=== PATIENT | male | born 1965 | race Caucasian/White ===

== ENCOUNTER 2023-11-01 10:13 | Inpatient (IN) | payer OTHER ==
[2023-11-01 10:56] VITALS: BMI 21.8
[2023-11-01] MEDS ORDERED: NALOXONE HCL (KLOXXADO) 8 MG SPRAY NS PRN (12:38)
[2023-11-01] MEDS ORDERED: guaiFENesin 600 MG TABLET.ER (FP) PO PRN (12:38)
[2023-11-01] MEDS ORDERED: POLYETHYLENE GLYCOL (HEALTHYLAX) 3350 17 GM PACKET PO PRN (12:38)
[2023-11-01] MEDS ORDERED: MAG HYDROX/AL HYDROX/SIMETH 30 ML UNIT-DOSE CUP PO PRN (12:38)
[2023-11-01] MEDS ORDERED: BENZOCAINE/MENTHOL (CHLORASEPTIC ) LOZENGE MM PRN (12:38)
[2023-11-01] MEDS ORDERED: IBUPROFEN 400 MG TABLET (FP) PO PRN (12:38)
[2023-11-01] MEDS ORDERED: NALOXONE HCL 0.4 MG/ML VIAL IM PRN (12:38)
[2023-11-01] MEDS ORDERED: BISMUTH SUBSALICYLATE 262 MG/15 ML BTL PO PRN (12:38)
[2023-11-01] MEDS ORDERED: IBUPROFEN 600 MG TABLET (FP) PO PRN (12:38)
[2023-11-01] MEDS ORDERED: MAGNESIUM HYDROX 2400MG/30ML ORAL SUSPENSION 30 ML CUP PO PRN (12:38)
[2023-11-01] MEDS ORDERED: BENZONATATE 200 MG CAPSULE PO PRN (12:38)
[2023-11-01] MEDS ORDERED: LOPERAMIDE HCL 2 MG CAPSULE PO PRN (12:38)
[2023-11-01] MEDS ORDERED: ACETAMINOPHEN 325 MG TABLET (FP) PO PRN (12:38)
[2023-11-01] MEDS ORDERED: hydrOXYzine PAMOATE 25 MG CAPSULE (FP) PO PRN (12:38)
[2023-11-01] MEDS ORDERED: ONDANSETRON *ODT* 4 MG TABLET ONE (13:30)
[2023-11-01] MEDS: ONDANSETRON *ODT* 4 MG TABLET SL PRN ×2 (13:32→21:00)
[2023-11-01] MEDS ORDERED: cloNIDine HCL 0.1 MG TABLET PO PRN (17:34)
[2023-11-01] MEDS ORDERED: TRIMETHOBENZAMIDE HCL 200MG/2ML INJ IM ONE (17:53)
[2023-11-01 20:57] VITALS: BP 149/68; PULSE 58; RESP 16; TEMP 98.7
[2023-11-01] MEDS ORDERED: THIAMINE HCL 100 MG TABLET (FP) PO SCH (22:00)
[2023-11-01] MEDS ORDERED: diazePAM 5 MG TABLET PO PRN (22:00)
[2023-11-01] MEDS ORDERED: MELATONIN 5 MG TABLETS PO SCH (22:00)
[2023-11-02] MEDS ORDERED: methaDONE HCL 10 MG TABLET (FOR DETOX USE ONLY) PO ONE (10:00)
[2023-11-02] MEDS ORDERED: PRENATAL VITAMINS W/ FOLIC ACID TABLET (FP) PO SCH (10:00)
== END 2023-11-02 07:09 | disposition short-term general hospital (02) | DRG 773 ==
LOC: YASAS 10:13 → Y6N 13:01
PROVIDERS: ADMIT Allergy & Immunology; ATTEND Surgery
PROC: HZ2ZZZZ Detoxification Services for Substance Abuse Treatment (ICD-10-PCS; principal; 2023-11-01)
DX: F11.23 Opioid dependence with withdrawal (principal); F13.20 Sedative, hypnotic or anxiolytic dependence, uncomplicated; F17.210 Nicotine dependence, cigarettes, uncomplicated; F43.10 Post-traumatic stress disorder, unspecified; F41.9 Anxiety disorder, unspecified; F32.A Depression, unspecified; R11.2 Nausea with vomiting, unspecified
CPT/HCPCS: 87635; 93005; 93010; Q0162

== ENCOUNTER 2023-11-01 23:24 | Observation (INO) | payer OTHER ==
[2023-11-01] MEDS ORDERED: METOCLOPRAMIDE HCL INJECTION 10 MG/2 ML VIAL IVPUSH ONE (23:46)
[2023-11-01] MEDS ORDERED: PROCHLORPERAZINE INJECTION 10 MG/2 ML VIAL IVPB ONE (23:46)
[2023-11-01 23:55] VITALS: BMI 20.5
[2023-11-02] MEDS ORDERED: METOCLOPRAMIDE HCL INJECTION 10 MG/2 ML VIAL ONE
[2023-11-02] MEDS ORDERED: PROCHLORPERAZINE INJECTION 10 MG/2 ML VIAL ONE
[2023-11-02] MEDS ORDERED: LORazepam 2 MG/ML SDV VIAL IVPUSH ONE (00:07)
[2023-11-02 00:34] LABS: BASO % 0.1 % (0-2.0); EOS % 0.1 % (0-4.5); HEMATOCRIT 38.4 % (35.4-49); HEMOGLOBIN 12.9 GM/dL (11.7-16.9); LYMPH % 11.5 % (8-40); MCH 30.3 pg (25.7-33.7); MCHC 33.6 g/dl (32.0-35.9); MEAN CELL VOLUME 90.2 fl (80-96); MONO % 3.2 % (3.8-10.2); NEUT % 85.1 % (42.8-82.8); PLATELET COUNT 280 10^3/uL (134-434); RBC 4.26 M/mm3 (4.00-5.60); RDW 13.8 % (11.9-15.9)
[2023-11-02 00:46] LABS: INR 0.95 (0.83-1.09)
[2023-11-02 00:54] LABS: ALBUMIN 3.5 g/dl (3.4-5.0); BLOOD UREA NITROGEN 23.1 mg/dL (7-18); CALCIUM 8.8 mg/dL (8.5-10.1); MAGNESIUM 1.9 mg/dL (1.8-2.4)
[2023-11-02 00:57] LABS: PHOSPHOROUS 1.6 mg/dL (2.5-4.9)
[2023-11-02 00:59] LABS: BILIRUBIN,TOTAL 0.6 mg/dL (0.2-1); TOT PROT 6.6 g/dl (6.4-8.2)
[2023-11-02] MEDS ORDERED: LACTATED RINGERS SOLUTION 1000 ML INFUS.BAG IV ONE (01:00)
[2023-11-02] MEDS ORDERED: ACETAMINOPHEN 1000 MG/100 ML BAG IVPB ONE (01:05)
[2023-11-02] MEDS ORDERED: POTASSIUM PHOSPHATE 30 MM in DEXTROSE 5%-WATER - 500 ML IVPB ONE (01:09)
[2023-11-02] MEDS ORDERED: ACETAMINOPHEN INJECTION 100 ML IVPB ONE (01:09)
[2023-11-02] MEDS ORDERED: ALPRAZolam 1 MG TABLET PO PRN (02:39)
[2023-11-02] MEDS ORDERED: clonazePAM 2 MG TABLET PO PRN (02:39)
[2023-11-02] MEDS ORDERED: LACTATED RINGERS SOLUTION 1,000 ML/1,000 ML INFUS.BAG IV SCH (02:45)
[2023-11-02 02:51] LABS: POTASSIUM 3.7 mmol/L (3.5-5.1)
[2023-11-02 02:52] LABS: CALCIUM 8.5 mg/dL (8.5-10.1)
[2023-11-02 02:53] LABS: BLOOD UREA NITROGEN 20.7 mg/dL (7-18); MAGNESIUM 1.5 mg/dL (1.8-2.4)
[2023-11-02 02:56] LABS: CREATININE 0.9 mg/dL (0.55-1.3); PHOSPHOROUS 2.1 mg/dL (2.5-4.9)
[2023-11-02] MEDS ORDERED: MAGNESIUM 2GM/50ML STERILE WATER IVPB IVPB ONE (03:03)
[2023-11-02] MEDS ORDERED: MAGNESIUM SULFATE IN WATER 2 GM/50 ML IVPB IVPB ONE (05:25)
[2023-11-02 05:59] LABS: PH,URINE >= 9.0 (5.0-8.0); URINE APPEARANCE CLEAR; URINE BILIRUBIN NEGATIVE (NEGATIVE); URINE COLOR YELLOW; URINE GLUCOSE (UA) NEGATIVE (NEGATIVE); URINE KETONE TRACE (NEGATIVE); URINE LEUK ESTERASE NEGATIVE (NEGATIVE); URINE NITRITE NEGATIVE (NEGATIVE); URINE PROTEIN NEGATIVE (NEGATIVE); URINE UROBILINOGEN 0.2 mg/dL (0.2-1.0)
[2023-11-02] MEDS ORDERED: ONDANSETRON 4 MG/2 ML VIAL ONE ×2 (06:52→11:44)
[2023-11-02] MEDS: ONDANSETRON 4 MG/2 ML VIAL IVPUSH PRN ×2 (06:56→11:53)
[2023-11-02 07:02] LABS: POTASSIUM 3.5 mmol/L (3.5-5.1)
[2023-11-02 07:08] LABS: ALBUMIN 3.4 g/dl (3.4-5.0); BLOOD UREA NITROGEN 18.2 mg/dL (7-18); CALCIUM 8.6 mg/dL (8.5-10.1); MAGNESIUM 1.8 mg/dL (1.8-2.4)
[2023-11-02 07:11] LABS: PHOSPHOROUS 3.4 mg/dL (2.5-4.9)
[2023-11-02 07:13] LABS: BILIRUBIN,TOTAL 0.5 mg/dL (0.2-1); TOT PROT 6.3 g/dl (6.4-8.2)
[2023-11-02 07:42] VITALS: TEMP 99.5
[2023-11-02] MEDS ORDERED: buPROPion HCL 75 MG TABLET PO SCH (08:00)
[2023-11-02] MEDS ORDERED: methaDONE HCL 10 MG TABLET ONE (08:48)
[2023-11-02] MEDS ORDERED: ALPRAZolam 1 MG TABLET ONE ×2 (10:00→10:05)
[2023-11-02] MEDS ORDERED: methaDONE HCL 10 MG TABLET PO ONE (10:00)
[2023-11-02] MEDS ORDERED: QUEtiapine FUMARATE 200 MG TABLET PO SCH (10:00)
[2023-11-02] MEDS ORDERED: ENOXAPARIN NA (PORCINE) 40 MG/0.4 ML DISP.SYRIN SQ SCH (10:00)
[2023-11-02] MEDS ORDERED: NICOTINE 7 MG/24 HOURS TOPICAL PATCH TD SCH (10:00)
[2023-11-02] MEDS ORDERED: clonazePAM 2 MG TABLET ONE (10:01)
[2023-11-02 10:09] VITALS: BP 148/84; PULSE 59; RESP 20
[2023-11-02] MEDS ORDERED: IBUPROFEN 400 MG TABLET (FP) PO ONE ×2 (10:41→11:44)
[2023-11-02] MEDS ORDERED: MIRTAZAPINE 30 MG TABLET PO SCH (22:00)
== END 2023-11-02 14:34 | disposition left against medical advice (07) ==
LOC: JER 23:24 → JERBED 11-02 01:54 → INTOOBSV 11-02 01:54
PROVIDERS: ADMIT Internal Medicine; ATTEND Internal Medicine
PROC: 3E033GC Introduction of Other Therapeutic Substance into Peripheral Vein, Percutaneous Approach (ICD-10-PCS; principal; 2023-11-02)
PROC: 3E0337Z Introduction of Electrolytic and Water Balance Substance into Peripheral Vein, Percutaneous Approach (ICD-10-PCS; 2023-11-02)
PROC: 3E013GC Introduction of Other Therapeutic Substance into Subcutaneous Tissue, Percutaneous Approach (ICD-10-PCS; 2023-11-02)
PROC: 3E033NZ Introduction of Analgesics, Hypnotics, Sedatives into Peripheral Vein, Percutaneous Approach (ICD-10-PCS; 2023-11-02)
DX: R11.2 Nausea with vomiting, unspecified (principal); F11.23 Opioid dependence with withdrawal; R94.31 Abnormal electrocardiogram [ECG] [EKG]; F17.200 Nicotine dependence, unspecified, uncomplicated; R10.9 Unspecified abdominal pain
CPT/HCPCS: 0241U-QW; 36415; 71045-TC-FY; 74177-TC; 80048; 80053; 81003; 83605; 83690; 83735; 84100; 84439; 84443; 84484; 85025; 85610; 85730; 87086; 96365; 96366; 96372; 96375; 99285-25; G0378